=== PATIENT | male | born 1965 | race Caucasian/White ===

== ENCOUNTER 2019-08-15 19:25 | Emergency (ER) | payer MEDICARE, OTHER ==
[2019-08-15 19:33] VITALS: BP 104/65
--- NOTE | 2019-08-15 20:32 | RADIOLOGY REPORT (SQ) ---
EXAM DESCRIPTION: CLINICAL HISTORY: 54 years Male, ANKLE PAIN COMPARISON: None. FINDINGS: Suspected mild osteoporosis associated with the left ankle joint. There is moderate soft tissue swelling adjacent to the lateral malleolus anteriorly. Suspected mild degenerative changes in the ankle mortise. Hypertrophic changes associated with the medial and lateral malleoli. No obvious acute fracture dislocation. IMPRESSION: Chronic bone and joint space changes in the left ankle. Soft tissue swelling mainly laterally and anteriorly. Rule out infection. No specific history of trauma provided. No definite fracture is seen.
--- NOTE | 2019-08-15 21:09 | ER Document Report ---
HPI - HPI Time Seen by Provider: 08/15/19 19:29 Pain Level: 5 Notes: Patient is an otherwise healthy 54-year-old male presenting to the emergency department chief complaint of left ankle pain. Patient reports he was on a walk as he usually does every day when his ankle started hurting. He states that he was supposed to have reconstructive surgery done on his ankle several years ago but has not done so. He denies any direct trauma recently to the ankle. Past Medical History - General Information source: Patient - Social History Smoking Status: Never Smoker Chew tobacco use (# tins/day): No Frequency of alcohol use: Rare Drug Abuse: None Family History: Reviewed & Not Pertinent Patient has suicidal ideation: No Patient has homicidal ideation: No - Medical History Medical History: Negative Surgical Hx: Negative - Immunizations Immunizations up to date: Yes Vertical Provider Document - CONSTITUTIONAL Notes: PHYSICAL EXAMINATION: GENERAL: Well-appearing, well-nourished and in no acute distress. LUNGS: Breath sounds clear to auscultation bilaterally and equal. No wheezes rales or rhonchi. HEART: Regular rate and rhythm without murmurs, rubs, gallops. Musculoskeletal: Lt foot/ankle: + mild swelling. No ecchymosis or deformity. LROM to passive/active dorsiflexion. Strength 5+/5. N/V intact distal. + tenderness to the lateral malleolus and area of the ATFL. No bony tenderness of the foot. Achilles intact. Lis Franc maneuver neg. Anterior drawer neg. Extremities: No cyanosis, clubbing, or edema b/l. Peripheral pulses 2+. Capillary refill less than 3 seconds. NEUROLOGICAL: Normal speech, limping gait. Normal sensory, motor exams PSYCH: Normal mood, normal affect. SKIN: Warm, Dry, normal turgor, no rashes or lesions noted. Course - Re-evaluation Re-evalutation: X-ray negative for any acute fracture dislocation. Patient has not had fever and there is no erythema or warmth, unlikely infection. Patient will follow-up with orthopedics as he was supposed to get reconstructive surgery on this ankle 2 years ago and has not done so. - Vital Signs Vital signs: Temp Pulse Resp BP Pulse Ox 98.1 F 80 16 104/65 97 08/15/19 19:31 08/15/19 19:31 08/15/19 19:31 08/15/19 19:31 08/15/19 19:31 Procedures - Immobilization Left ankle Pre-Proc Neuro Vasc Exam: Normal Immobilizer type: Ankle stirrup, Crutches Performed by: PCT Post-Proc Neuro Vasc Exam: Normal Discharge - Discharge Clinical Impression: Ankle pain Qualifiers: Chronicity: acute Laterality: left Qualified Code(s): M25.572 - Pain in left ankle and joints of left foot Condition: Stable Disposition: HOME, SELF-CARE Additional Instructions: The x-rays of her ankle do not show any fracture or dislocation. There is a lot of degenerative changes and soft tissue swelling. Please keep the ankle stirrup splint in place, use the crutches and do not weight-bear until you are seen by orthopedics. You may apply ice to the area. Take ibuprofen 600 mg every 6 hours. Try to elevate the extremity as much as possible. Call orthopedics tomorrow. Referrals: MEGHAN DORANTES JR, DO [ACTIVE PROVISIONAL STAFF] - Follow up as needed
== END 2019-08-15 21:20 | disposition home or self-care (01) ==
LOC: ER 19:25
DX: M25.572 Pain in left ankle and joints of left foot (principal)
CPT/HCPCS: 99283